=== PATIENT | female | born 2000 | race Caucasian/White ===

== ENCOUNTER 2020-03-31 19:44 | Emergency (ER) | payer SELFPAY ==
[2020-03-31] MEDS ORDERED: SODIUM CHLORIDE 0.9% 1000ML 1,000 ML IVS ONE (20:00)
--- NOTE | 2020-03-31 20:04 | ED.PDOC ---
History of Present Illness - General Time Seen by Provider: 03/31/20 19:59 Information Source: patient Additional Information: , This is a 20-year-old female, with no medical vaccine up-to-date, patient presenting with nausea and vomiting since today with decreased oral intake patient stated that was taking some Accutane and she did have some alcohol yesterday and then the vomiting began today but also according to the grandmother patient has had not feeling well for the past few days, no fever no chills no known exposure per patient has been in [place] since January, from [place] grandmother is concerned for possible COVID - History of Present Illness Abdominal Pain Onset Location: other - no Abdominal pain Improving Factors: nothing Worsening Factors: nothing Associated Symptoms: nausea/vomiting Review of Systems - Review of Systems Constitutional: States: no symptoms reported EENTM: States: no symptoms reported Respiratory: States: no symptoms reported Cardiology: States: no symptoms reported Gastrointestinal/Abdominal: States: no symptoms reported, nausea, vomiting Genitourinary: States: no symptoms reported Musculoskeletal: States: no symptoms reported Skin: States: no symptoms reported Neurological: States: no symptoms reported Endocrine: States: no symptoms reported Hematologic/Lymphatic: States: no symptoms reported Family Medical History - Family History Mother Family History: Unknown Physical Exam - Physical Exam General Appearance: Alert, Obvious distress Eyes, Ears, Nose, Throat Exam: PERRL/EOMI, normal ENT inspection, TMs normal Neck: non-tender, full range of motion, supple, normal inspection Respiratory: chest non-tender, lungs clear, normal breath sounds, no respiratory distress, no accessory muscle use Cardiovascular/Chest: normal peripheral pulses, regular rate, rhythm, no edema, no gallop, no JVD, no murmur Gastrointestinal/Abdominal: normal bowel sounds, non tender, soft, no organomegaly, no pulsatile mass Back Exam: normal inspection, no CVA tenderness, no vertebral tenderness Extremity: normal range of motion, non-tender, normal inspection, no pedal edema, no calf tenderness Neurologic: script coordinator II-XII nml as tested, no motor/sensory deficits, alert, normal mood/affect, oriented x 3 Lymphatic: no adenopathy Progress - Progress Progress: 03/31/20 20:4Patient present with nausea vomiting since today, no abdominal pain no fever patient did have some alcohol yesterday and she is been taking some medication for a skin condition, that sometimes makes her vomit when she drinks alcohol. I did test some lab values, and everything looks to be okay patient not no UTI patient received Zofran and a liter of normal saline and immediately feels a lot better she regained some color moist oral mucosa she does not look as pale as she did when she arrived. Patient discharged home with Zofran instructions to keep herself hydrated and keep practicing social distancing. I also discussed with the patient that the COVID test will not be available today that is a send out but keep practicing and avoid people to avoid any exposure Departure - Departure Clinical Impression: Vomiting Qualifiers: Vomiting type: unspecified Vomiting Intractability: non-intractable Nausea and vomiting Qualifiers: Vomiting type: unspecified Vomiting Intractability: unspecified Qualified Code(s): R11.2 - Nausea with vomiting, unspecified Disposition: Discharge to Home or Self Care Instructions: Nausea and Vomiting, Adult Diet: full liquid diet Activity: increase activity as tolerated Prescriptions: Ondansetron Odt [Zofran ODT] 4 mg PO Q6HRS #20 tab Home Medications: Ambulatory Orders Ondansetron Odt [Zofran ODT] 4 mg PO Q6HRS #20 tab 03/31/20
[2020-03-31 20:08] VITALS: O2SAT 100
[2020-03-31] MEDS ORDERED: ONDANSETRON INJ 4 MG/2 ML VIAL IV ONE (20:40)
[2020-03-31 21:02] VITALS: BP 127/80; TEMP 98.8
== END 2020-03-31 20:55 | disposition home or self-care (01) ==
LOC: ER 19:44
DX: R11.2 Nausea with vomiting, unspecified (principal)
CPT/HCPCS: 36415; 80053; 81001; 83690; 84703; 85025; J2405; J7030; U0002